=== PATIENT | female | born 1990 | race African-American/Black ===

== ENCOUNTER 2025-07-10 00:55 | Emergency (ER) | payer BC, SELFPAY ==
[2025-07-10] VITALS (16 sets, daily range): BP systolic 119–160; BP diastolic 75–106; PULSE 84–109; RESP 15–28; TEMP 36.8; O2SAT 98–100
--- NOTE | ~2025-07-10 | XR_ITS ---
Examination: XR chest 2V Clinical History: chest pain Comparison: None Technique: PA and Lateral Findings: Cardiomediastinal silhouette normal size and configuration. Lungs clear. No acute bony abnormality. IMPRESSION: 1. No acute cardiopulmonary findings. Reviewed, dictated and finalized at location R.
--- NOTE | 2025-07-10 00:58 | ECG_ITS ---
Test Date: 2025-07-10 01:29:14 Measurements Intervals [place] Rate: 99 P: 34 [place]: 193 QRS: -1 QRSD: 89 T: 14 QT: 337 QTc: 433 Interpretive Statements SINUS RHYTHM VOLTAGE CRITERIA FOR LVH BORDERLINE ECG No previous ECG available for comparison Electronically Signed On 07-10-2025 06:27:13 CDT by Enrique Post D.O.
[2025-07-10 01:49] LABS: Hematocrit 38.0 % (37.0-47.0); Hemoglobin 11.9 g/dL (12.0-15.0); Immature Granulocyte Percent A 0.2 % (0-0.5); Lymphocytes Absolute Auto 1.80 K/mm3 (0.9-3.2); Mean Corpuscular HGB Conc 31.3 g/dl (32-36); Mean Corpuscular Hemoglobin 26.4 pg (26-34); Mean Corpuscular Volume 84.3 fl (80-100); Nucleated Red Blood Cells Absolute Auto 0.000 K/mm3 (0.0-0.012); Nucleated Red Blood Cells Perc 0.0 % (0.0-0.2); Platelet Count Result 372 k/mm3 (150-375); Red Blood Count 4.51 M/mm3 (4.2-5.4); White Blood Count 5.7 K/mm3 (4.5-10.0)
[2025-07-10 01:59] LABS: Alanine Aminotransferase 14 U/L (6-35); Albumin Level 4.3 g/dL (3.5-5.1); Alkaline Phosphatase 72 U/L (38-126); Anion Gap 7 mmol/L (4-12); Aspartate Amino Transferase 17 U/L (14-36); Bilirubin,Total 0.2 mg/dL (0.2-1.3); Blood Urea Nitrogen 14 mg/dL (7-17); Calcium 9.3 mg/dL (8.4-10.2); Carbon Dioxide 26 mmol/L (22-30); Chloride 102 mmol/L (98-107); Estimated Glomerular Filt Rate > 60; Glucose 129 mg/dL (65-110); Lipase 69 U/L (23-300); Potassium 3.9 mmol/L (3.4-5.0); Sodium 135 mmol/L (137-145); Total Protein 8.2 g/dL (6.3-8.2)
[2025-07-10 02:01] LABS: INR 1.0; Prothrombin Time 13.5 Seconds (11.1-14.7)
[2025-07-10 02:02] LABS: Partial Thromboplastin Time 22.3 Seconds (22.3-36.8)
[2025-07-10 02:11] LABS: Troponin I 0.013 ng/mL (0.000-0.034)
--- NOTE | 2025-07-10 03:47 | ED.CHESTPAIN ---
HPI - Chest Pain General Chief Complaint: Chest Pain Stated Complaint: L chest/neck pain Time Seen by Provider: 07/10/25 03:30 Source: patient Mode of arrival: ambulatory Limitations: no limitations History of Present Illness HPI narrative: Patient is a 34-year-old female presents to the emergency department complaining of chest pain. Patient notes that the pain started while resting around about 10:00 a.m. last night after getting of the shower, lasted about 1 hour and has since resolved and not returned. Patient's the pain was in the left side of her chest, felt like a burning sensation and radiated up to her left neck, denies any history of this pain in the past, admits to a remote history of a stress test when she was , took Tylenol prior to arrival, denies any difficulty breathing currently but had some slight difficulty breathing with chest pain. Patient denies any injuries. Patient denies any focal weakness or numbness. Patient denies any nausea, vomiting, diarrhea, melena hematochezia, urinary discomfort, abdominal pain, cough, fever. Denies history of blood clots or use of control. Related Data Allergies Allergy/AdvReac Type Severity Reaction Status Date / Time fentanyl Allergy Unknown Hives Verified 07/10/25 00:56 Review of Systems Review of Systems: A 10 system review of systems was completed on the patient and is negative except for what is stated in the HPI. Nursing and ancillary documentation was reviewed. Exam Narrative: CONST: No acute distress. Well nourished. HENMT: Head is normocephalic and atraumatic. Moist mucous membranes. No posterior oropharynx erythema. EYES: No scleral icterus. No conjunctival injection or pallor. PERRL. NECK: No meningeal signs. RESP: Able to speak in full sentences. Normal respiratory effort. CTAB. CARDIO: Regular rate. Regular rhythm. 2+ DP and radial pulses bilaterally. GI: Nondistended. No tenderness to palpation. Soft. : No CVA tenderness to palpation. SKIN: No rashes or lesions noted on exposed skin. NEURO: Oriented x3. Moves all extremities. EXTREM/MSK/BACK: No pedal edema. PSYCH: Normal affect. Course Vital Signs Vital signs: Vital Signs Temperature 98.2 F 07/10/25 01:16 Pulse Rate 109 H 07/10/25 01:16 Respiratory Rate 18 07/10/25 01:16 Blood Pressure 148/106 H 07/10/25 01:16 Pulse Oximetry 100 07/10/25 01:16 Oxygen Delivery Room Air 07/10/25 01:16 Temperature 98.2 F 07/10/25 01:16 Pulse Rate 88 07/10/25 04:16 Respiratory Rate 16 07/10/25 04:16 Blood Pressure 120/78 07/10/25 04:16 Pulse Oximetry 100 07/10/25 04:16 Oxygen Delivery Room Air 07/10/25 01:16 MDM - Chest Pain MDM Narrative Medical decision making narrative: Patient presents with the above complaint. Initial vitals are remarkable for tachycardia, patient was not tachycardic on my examination. Physical examination as noted above. Differential diagnosis includes was not limited to: ACS, pulmonary embolism, pneumonia, costochondritis, GERD, pericarditis, myocarditis, pancreatitis. Plan discussed: Laboratory analysis, EKG, chest x-ray, aspirin, continues cardiac monitoring, continuous pulse oximetry. On reassessment patient is sleeping comfortably appearing no acute distress, vital signs stable. Patient denies any current complaints. CBC reveals a hemoglobin 11.9. D-dimer 0.38. Coags are within normal limits. Comprehensive metabolic panel reveals a glucose of 129. Troponin is 0.013 and repeat troponin 0.013. Lipase 69. test is negative. Chest x-ray reveals no acute cardiopulmonary abnormality. EKGs show sinus rhythm, normal rate, voltage criteria for LVH, no ST elevation or depressions, no significant T-wave abnormalities, no acute ischemic pattern. Patient informed of the LVH and instructed to follow with cardiology further evaluation and strict return precautions. Patient was reassessed at the bedside. No changes in physical exam. Patient is in no acute distress. The patient has remained stable throughout the entire ED visit. Counseled patient regarding diagnostic results and potential diagnosis. Anticipatory guidance provided. Patient instructed to follow up with cardiology in 2-3 days. Patient counseled on: false reassurance from an emergency department evaluation; no current evidence of a medical emergency; return immediately for any new, recurrent, worsening, concerning, or refractory symptoms. Additional verbal and printed discharge instructions were given and discussed with the patient. Patient verbally acknowledges understanding of condition and discharge instructions. All questions were answered to the patient's satisfaction. Patient is in agreement with the plan of care. The patient is stable for discharge and was discharged without incident. Medical Records Data Attestation: I reviewed the patient's medical records. Lab Data Attestation: I reviewed the patient's lab results. 07/10/25 01:42 07/10/25 01:42 Labs: Lab Results 07/10/25 07/10/25 Range/Units 01:42 05:03 WBC 5.7 (4.5-10.0) K/mm3 RBC 4.51 (4.2-5.4) M/mm3 Hgb 11.9 L (12.0-15.0) g/dL Hct 38.0 (37.0-47.0) % MCV 84.3 (80-100) fl MCH 26.4 (26-34) pg MCHC 31.3 L (32-36) g/dl RDW 14.6 H (11.5-14.5) % Plt Count 372 (150-375) k/mm3 MPV 8.4 (7.4-10.4) fl Immature Gran % (Auto) 0.2 (0-0.5) % Neut % (Auto) 54.2 (45.5-73.1) % Lymph % (Auto) 31.6 (18.3-44.2) % [place] % (Auto) 10.5 H (2.6-8.5) % Eos % (Auto) 2.8 (0-4.4) % Baso % (Auto) 0.7 (0.2-1.2) % Lymph # (Auto) 1.80 (0.9-3.2) K/mm3 [place] # (Auto) 0.6 (0.1-0.6) K/mm3 Eos # (Auto) 0.2 (0-0.3) K/mm3 Baso # (Auto) 0.0 (0.0-0.1) K/mm3 Abs Immat Gran (auto) 0.01 (0.00-0.031) K/mm3 Absolute Neuts (auto) 3.1 (1.3-6.7) K/mm3 Absolute Nucleated RBC 0.000 (0.0-0.012) K/mm3 Nucleated RBC % 0.0 (0.0-0.2) % PT 13.5 (11.1-14.7) Seconds INR 1.0 APTT 22.3 (22.3-36.8) Seconds D-Dimer 0.38 (<0.48) ug/mL Sodium 135 L (137-145) mmol/L Potassium 3.9 (3.4-5.0) mmol/L Chloride 102 (98-107) mmol/L Carbon Dioxide 26 (22-30) mmol/L Anion Gap 7 (4-12) mmol/L BUN 14 (7-17) mg/dL Creatinine 0.90 (0.7-1.0) mg/dL Estim Creat Clear Calc Not Reportable Estimated GFR > 60 (59 - ) Glucose 129 H (65-110) mg/dL Calcium 9.3 (8.4-10.2) mg/dL Total Bilirubin 0.2 (0.2-1.3) mg/dL AST 17 (14-36) U/L ALT 14 (6-35) U/L Alkaline Phosphatase 72 (38-126) U/L Troponin I 0.013 0.013 (0.000-0.034) ng/mL Total Protein 8.2 (6.3-8.2) g/dL Albumin 4.3 (3.5-5.1) g/dL Lipase 69 (23-300) U/L Urine Test Negative Discharge Plan Discharge Clinical Impression: Chest pain Qualifiers: Chest pain type: unspecified Qualified Code(s): R07.9 - Chest pain, unspecified Patient Disposition: Home Condition: Stable Instructions: Antibiotic Form, Chest Pain (ED) Additional Instructions: Follow-up with cardiology in the next 2-3 days for reassessment is will likely benefit from further outpatient workup such as an ultrasound on your heart and stress testing. Refrain from any significant exertional activity until seen by Cardiology. Return immediately to the emergency department for any new or concerning symptoms especially any emergent concerns for life, limb, eyesight. Patient Language: Peruvian Follow-up/Referrals: Homa Mcintyre DO [Physician, Cardiology] - 2 Days PHYSICIAN NOT ON STAFF,NONSTAFF [Primary Care Provider] Time of Disposition: 05:48 Quality HEART score for chest pain patients History: slightly suspicious ECG: non specific repolarization disturbance/LBTB/PM Age: < or = to 45 years Risk factors: > or = to 3 risk factors of atherosclerotic disease Troponin: < or = to 1x normal limit Heart score: 3
--- NOTE | 2025-07-10 03:58 | ECG_ITS ---
Test Date: 2025-07-10 04:08:23 Measurements Intervals [place] Rate: 86 P: 37 [place]: 189 QRS: 0 QRSD: 89 T: 13 QT: 372 QTc: 445 Interpretive Statements SINUS RHYTHM VOLTAGE CRITERIA FOR LEFT VENTRICULAR HYPERTROPHY BORDERLINE ECG Compared to ECG 07/10/2025 01:29:14 No significant changes Electronically Signed On 07-10-2025 06:32:12 CDT by Enrique Post D.O.
[2025-07-10 05:11] LABS: Pregnancy On Board Control Positive
[2025-07-10 05:35] LABS: Troponin I 0.013 ng/mL (0.000-0.034)
== END 2025-07-10 05:59 | disposition home or self-care (01) ==
PROVIDERS: Emergency Provider Student in an Organized Health Care Education/Training Program
DX: R07.9 Chest pain, unspecified (principal); R94.31 Abnormal electrocardiogram [ECG] [EKG]
CPT/HCPCS: 36415; 71046; 80053; 81025; 83690; 84484; 85025; 85380; 85610; 85730; 93005; 99284